=== PATIENT | male | born 2000 | race Caucasian/White ===

== ENCOUNTER 2019-04-30 09:42 | Emergency (ER) | payer OTHER, SELFPAY ==
[2019-04-30 09:52] VITALS: BP 136/75; PULSE 91; RESP 18; TEMP 36.8; O2SAT 99; BMI 19.2
[2019-04-30 09:59] LABS: UTC Strep Screen (Rapid) Negative (Negative)
--- NOTE | 2019-04-30 10:00 | HMH.EDUTC ---
[facility] [place] Disposition Clinical Impression: Strep sore throat Disposition: Home, Self-Care Condition on Discharge: Good Instructions: DI for Strep Throat, Strep Throat Additional Instructions: Start antibiotics today be sure to take it as ordered with the full length of time although you should start feeling better in 24-48 hours. Change toothbrush and toothpaste 24-48 hours after starting antibiotics Tylenol or Motrin as needed for fever or pain Encourage fluids, water, Gatorade, Powerade, try cold fluids, popsicles, ice cream will make it feel better You are contagious for 24 hours. Avoid kissing anyone, no eating or drinking after anyone. You are contagious. Follow-up the ER for new or worsening symptoms or no noticeable improvement over the next 24-48 hours. Follow-up with PCP this week. call for throat culture results in 48 hours Prescriptions: Azithromycin [Zithromax 250mg tab] 250 mg PO DIRECTED #6 tab Referrals: Devonte Strauss [Primary Care Provider] - Time of Disposition: 10:11 Medical Decision Making - Sonny Inquiry Pt receiving controlled substance: No Vital Signs: 04/30/19 09:52 Temperature 98.3 F Temperature Source Oral Pulse Rate [Left Radial] 91 H Respiratory Rate 18 Blood Pressure [Left Arm] 136/75 Blood Pressure Mean [Left Arm] 95 Blood Pressure Source [Left Arm] Automatic Cuff Blood Pressure Position [Left Arm] Sitting 02 Sat by Pulse Oximetry 99 Oxygen Delivery Method Room Air - Lab Data Lab Results 04/30/19 09:53: Strep Scn Rapid Clinic Negative Orders (Tests/Meds): ORDERS Category Date Time Status Strep Screen Confirmation Stat Micro 04/30/19 09:53 Received [facility] [place] HPI - General Chief complaint: Urgent Treatment Center Stated complaint: sore throat, runny nose, headache Time Seen by Provider: 04/30/19 10:00 Mode of Arrival: Ambulatory Source of Information: Patient Limitations: No Limitations Description of Symptoms (Recalled from Triage Doc. by RN): C/O SORE THROAT, COUGH, RUNNY NOSE, CONGESTION, YANEZ HEENT Symptoms (Recalled from RN notes): Yes (SORE THROAT, CONGESTION, YANEZ) Resp Symptoms (Recalled from RN notes): Yes (COUGH) Skin Symptoms (Recalled from RN notes): No MS Symptoms (Recalled from RN notes): No Functional Status (Recalled from RN notes): N/A - History of Present Illness Provider Complaint: 18 yr old male presnets for sore throat, headache,sinus congestion, horseness and fever since weds and getting worse. significant other states she had strep a few weeks ago. - Related Data Previous Rx's Medication Instructions Recorded Azithromycin [Zithromax 250mg 250 mg PO DIRECTED #6 tab 01/03/19 tab] Azithromycin [Zithromax 250mg 250 mg PO DIRECTED #6 tab 04/30/19 tab] Allergies Allergy/AdvReac Type Severity Reaction Status Date / Time codeine [CODEINE] Allergy Unknown Verified 11/30/18 09:57 Penicillins [PENICILLINS] Allergy Unknown Verified 11/30/18 09:57 latex Allergy Verified 01/03/19 09:55 - Worker's Comp Is this a Worker's Comp case?: No [facility] History - Hepatitis A Screen Drug use history?: No High risk sexual behaviors?: No History of sexually transmitted infection?: No Currently employed?: No Childcare worker?: No Do you have indoor plumbing?: Yes Do you have electricity?: Yes Attestation statement:: This patient has been screened for Hepatitis A risk factors. I have reviewed the patient's past medical history: Yes - Social History Smoking Status: Never smoker Alcohol Intake: never Occupational Status: other - Psychiatric History Expresses thoughts of harming self/others: None Suicide Plan Description: No Plan ROS Obtained: Yes Systems reviewed as appropriate & no additional complaints - Constitutional Constitutional: Reports system reviewed and no additional complaints, except as docu, Reports body ache, Reports fever(s), Reports headache(s) - Eyes Eyes: Reports system reviewed and no a
[2019-04-30 10:15] VITALS: BP 136/75; PULSE 91; RESP 18; TEMP 36.8; O2SAT 99
== END 2019-04-30 10:16 | disposition home or self-care (01) ==
PROVIDERS: Emergency Provider Nurse Practitioner Family; PCP Internal Medicine
DX: J02.0 Streptococcal pharyngitis (principal)
CPT/HCPCS: 87880; 99201

== ENCOUNTER 2020-03-06 16:01 | Emergency (ER) | payer OTHER, SELFPAY ==
[2020-03-06 16:08] VITALS: BP 125/75; PULSE 94; RESP 18; TEMP 37.1; O2SAT 97; BMI 19.2
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
[2020-03-06 17:43] VITALS: BP 125/75; PULSE 94; RESP 18; TEMP 37.1; O2SAT 97
== END 2020-03-06 17:44 | disposition home or self-care (01) ==
PROVIDERS: Emergency Provider Family Medicine; PCP Internal Medicine
DX: S70.311A Abrasion, right thigh, initial encounter (principal); W45.8XXA Other foreign body or object entering through skin, initial encounter; Y92.019 Unspecified place in single-family (private) house as the place of occurrence of the external cause; Z88.0 Allergy status to penicillin; Z88.5 Allergy status to narcotic agent; Z91.040 Latex allergy status
CPT/HCPCS: 99281

== ENCOUNTER 2020-05-05 13:42 | Emergency (ER) | payer OTHER, SELFPAY ==
[2020-05-05 14:13] VITALS: BP 123/80; PULSE 68; RESP 20; TEMP 36.7; O2SAT 100; BMI 19.2
--- NOTE | 2020-05-05 14:33 | PC.NURSE ---
PATIENT SENT TO ER PER RIANNA RECINOS APRN FOR FURTHER EVALUATION
[2020-05-05 14:38] VITALS: BP 123/85; PULSE 80; RESP 17; O2SAT 98; BMI 18.9
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
[2020-05-05 15:21] VITALS: BP 127/76; PULSE 72; RESP 14; TEMP 36.7; O2SAT 98
== END 2020-05-05 15:26 | disposition home or self-care (01) ==
LOC: UTC 14:06 → ER 14:34
PROVIDERS: Emergency Provider Family Medicine; PCP Internal Medicine
DX: S81.011A Laceration without foreign body, right knee, initial encounter (principal); Z88.0 Allergy status to penicillin; Z88.2 Allergy status to sulfonamides
CPT/HCPCS: 12002; 99282

== ENCOUNTER 2020-05-19 13:44 | Emergency (ER) | payer OTHER, SELFPAY ==
[2020-05-19 14:45] VITALS: BP 139/79; PULSE 98; RESP 20; TEMP 36.8; O2SAT 98; BMI 19.8
[2020-05-19 14:48] VITALS: BP 139/79; PULSE 98; RESP 20; TEMP 36.8; O2SAT 100
== END 2020-05-19 14:48 | disposition home or self-care (01) ==
PROVIDERS: Emergency Provider Nurse Practitioner; PCP Internal Medicine
DX: S81.011D Laceration without foreign body, right knee, subsequent encounter (principal)

== ENCOUNTER → 2020-05-21 15:55 | Outpatient (CLI) | payer OTHER, SELFPAY ==
--- NOTE | 2020-05-21 16:04 | CA_ITS ---
APPROVED REPORT Right Lower Extremity Venous Study for DVT. Asic Design Engineer: ABHILASH CoronaT Indications Lower Extremity Pain: Right PT HAS INJURY TO RT LEG SEVERAL WKS AGO REQUIRING AREA TO BE LANCED AND DRAINED, NOW HAS PAIN, TIGHTNESS AND REDNESS RT CALF, PT ALSO HAS A CAPILLARY DISORDER Risk Factors Trauma Vein Imaging CFV (R): compressive, spontaneous, phasic, augmentation FEM (R): compressive, spontaneous, phasic, augmentation POP (R): compressive, spontaneous, phasic, augmentation PTV (R): Compressible GSV (R): Compressible Peroneals (R):Compressible GAS (R): Non-Compressible Findings Study suggests no evidence of DVT of the right lower extremity. Study suggests SVT of the proximal and mid superficial veins of the right lower extremity. Conclusion Study suggests no evidence of DVT of the right lower extremity. Study suggests SVT of the proximal and mid superficial veins of the right lower extremity. Critical Notification Physician Notified Date: 05/21/2020 Time: 16:32 Physician Name: Dr Strauss Electronically signed by : Theodore Espinosa MD 05/21/2020 19:00:30
== END ==
LOC: RT 16:02
PROVIDERS: PCP Internal Medicine; Visit Provider Internal Medicine
DX: M79.89 Other specified soft tissue disorders (principal); R23.8 Other skin changes
CPT/HCPCS: 93971

== ENCOUNTER → 2020-06-12 15:08 | Outpatient (CLI) | payer OTHER, SELFPAY ==
--- NOTE | 2020-06-12 15:14 | CA_ITS ---
APPROVED REPORT Right Lower Extremity Venous Study for DVT. Rubber Curer: JONAH Indications Patient had injury to rt leg over a month ago that required area to be lanced and drained. He had a venous doppler of the right 05/21/20 that suggested SVT of the proxima and mid superficial veins of the right lower extremity. Today's venous is ordered as a followup. Patient has A capillary disorder. Medications Patient took Elliquis x 2 weeks after SVT diagnosis 05/21/20 Vein Imaging FEM (R): compressive, spontaneous, phasic, augmentation POP (R): compressive, spontaneous, phasic, augmentation PTV (R): Compressible Peroneals (R):Compressible GAS (R): Non-Compressible Findings Study suggests no evidence of DVT of the right lower extremity Study suggests SVT of the proximal and mid superficial veins of the right lower extremity with little to no change since venous done 05/21/20. Conclusion Study suggests no evidence of DVT of the right lower extremity Study suggests SVT of the proximal and mid superficial veins of the right lower extremity with little to no change since venous done 05/21/20. Electronically signed by : Theodore Espinosa MD 06/13/2020 16:07:54
== END ==
PROVIDERS: PCP Internal Medicine; Visit Provider Internal Medicine
DX: M79.605 Pain in left leg (principal); M79.89 Other specified soft tissue disorders
CPT/HCPCS: 93971

== ENCOUNTER 2020-10-13 15:15 | Emergency (ER) | payer OTHER, SELFPAY ==
[2020-10-13 15:22] VITALS: BP 128/64; PULSE 85; RESP 16; TEMP 36.9; O2SAT 99; BMI 18.6
[2020-10-13 15:25] VITALS: BP 118/69; PULSE 96; RESP 20; TEMP 37; O2SAT 98; BMI 18.6
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
[2020-10-13 16:20] VITALS: BP 118/69; PULSE 96; RESP 20; TEMP 37; O2SAT 98
== END 2020-10-13 16:25 | disposition home or self-care (01) ==
PROVIDERS: Emergency Provider Nurse Practitioner Family; PCP Internal Medicine
DX: S61.012A Laceration without foreign body of left thumb without damage to nail, initial encounter (principal); W31.89XA Contact with other specified machinery, initial encounter; Y92.018 Other place in single-family (private) house as the place of occurrence of the external cause; Z88.0 Allergy status to penicillin; Z88.5 Allergy status to narcotic agent
CPT/HCPCS: 12001; 99201

== ENCOUNTER 2022-10-24 13:59 | Emergency (ER) | payer BC, SELFPAY ==
[2022-10-24 14:30] VITALS: BP 130/74; PULSE 101; RESP 19; TEMP 37; O2SAT 98; BMI 18.6
--- NOTE | 2022-10-24 14:36 | EXP.UTC ---
Discharge Plan Disposition Patient Disposition: Home, Self-Care Condition: Good Prescriptions Prescriptions: New prednisone [prednisone] 20 mg tablet 20 mg PO BID 5 Days Qty: 10 0RF doxycycline monohydrate 100 mg tablet 100 mg PO BID 10 Days Qty: 20 0RF Referrals Follow up/Referrals: Devonte Strauss MD [Primary Care Provider] - See instructions Activity Restrictions/Add. Instructions Additional Instructions/Restrictions: Take all medicines as prescribed until gone Clinical Impressions Clinical Impression: Sinusitis Instructions Patient Instructions: DI for Sinusitis Discharge ED Provider: Chastity Hall [facility] [place] HPI General Stated complaint: Drainage, cough, sinus pressure Time Seen by Provider: 10/24/22 14:36 History of Present Illness Provider Complaint: Drainage, sinus pain, pressure, sore throat X 5 days. No fever. Onset (ago): day(s) (5) Location: face Relieving factors: none Exacerbating factors: none Associated symptoms: denies other symptoms Treatments prior to arrival: none Related Data Previous Rx's Medication Instructions Recorded doxycycline monohydrate 100 mg 100 mg PO BID 10 days #20 tabs 10/24/22 tablet prednisone 20 mg tablet 20 mg PO BID 5 days #10 tabs 10/24/22 Allergies Allergy/AdvReac Type Severity Reaction Status Date / Time codeine [CODEINE] Allergy Unknown Verified 11/30/18 09:57 Penicillins [PENICILLINS] Allergy Unknown Verified 11/30/18 09:57 latex Allergy Verified 01/03/19 09:55 [facility] Disclaimer: The information contained in this section may have been updated after the patient was seen, as this information can be updated by other users. Medical History (Updated 10/24/22 @ 14:46 by KESHIA Boyle) Migraine Social History Smoking Status: Never smoker alcohol intake: never current occupational status: other Travel in the last 8 weeks: None housing: house ROS Obtained: Yes All systems reviewed & no additional complaints except as documented ENT Ears, Nose, Mouth, and Throat: Reports nasal congestion, Reports sinus pain and Reports sinus pressure Respiratory Respiratory: Reports cough Physical Exam General General appearance: alert and in no apparent distress Head Head exam: atraumatic, normocephalic and normal inspection Eye Eye exam: Present normal appearance, PERRL and EOMI ENT ENT exam: Present normal exam, normal oropharynx, mucous membranes moist, TM's normal bilaterally and normal external ear exam Expanded ENT Exam Nose exam: Present sinus tenderness (right maxillary) Throat exam: Present other (PND) Neck Neck exam: Present normal inspection, full ROM and trachea midline; Absent meningismus or lymphadenopathy Chest Chest inspection: Present normal inspection and symmetric chest wall rise; Absent tenderness Respiratory Respiratory exam: Present normal lung sounds bilaterally; Absent respiratory distress Cardiovascular Cardiovascular exam: Present regular rate and normal rhythm; Absent JVD Abdominal Exam Abdominal exam: Present soft and normal bowel sounds; Absent distention, tenderness or guarding Extremities Exam Extremities exam: Present normal inspection, full ROM and normal capillary refill; Absent calf tenderness Back Exam Back exam: Present normal inspection; Absent tenderness Neurological Exam Neurological exam: Present alert and oriented X3 Psychiatric Psychiatric exam: Present normal affect and normal mood Skin Skin exam: Present warm, dry, intact and normal color Lymphatic Lymphatic Findings: no adenopathy Medical Decision Making Sonny Inquiry Pt receiving controlled substance: No
[2022-10-24 14:47] VITALS: BP 130/74; PULSE 101; RESP 19; TEMP 37; O2SAT 98
== END 2022-10-24 14:53 | disposition home or self-care (01) ==
PROVIDERS: Emergency Provider Physician Assistant; PCP Internal Medicine
DX: J32.9 Chronic sinusitis, unspecified (principal)
CPT/HCPCS: 99212; G0463

== ENCOUNTER 2025-07-25 17:51 | Emergency (ER) | payer BC, SELFPAY ==
[2025-07-25 17:52] VITALS: BP 124/79; PULSE 89; RESP 18; TEMP 36.9; O2SAT 100; BMI 21.4
--- NOTE | 2025-07-25 18:06 | ED_ITS ---
Discharge Plan Disposition Patient Disposition: Home, Self-Care Condition: Good Prescriptions Prescriptions: New dextromethorphan-guaifenesin 30-600 mg tablet extended release 12 hr 1 tab PO BID PRN (Reason: cough) Qty: 20 0RF No Action prednisone [prednisone] 20 mg tablet 20 mg PO BID 5 Days Qty: 10 0RF doxycycline monohydrate 100 mg tablet 100 mg PO BID 10 Days Qty: 20 0RF ondansetron 4 mg tablet,disintegrating 4 mg PO Q6H PRN (Reason: nausea and vomiting) Qty: 10 0RF Referrals Follow up/Referrals: Devonte Strauss MD [Primary Care Provider, Medical] - See instructions Activity Restrictions/Add. Instructions Additional Instructions/Restrictions: Take Tylenol or Motrin every 6 hours for the next couple days for your symptoms. I have sent you with a test of medication that you can take for your cough. Your symptoms likely could continue for another week. Return to the emergency department if you are short of breath, worsening chest pain. We will call you if anything comes back positive on your respiratory panel. Clinical Impressions Clinical Impression: Acute upper respiratory infection Print Language Print Language: Estonian Discharge ED Provider: Shanae Meredith General Adult HPI General Chief complaint: Upper Respiratory Infection Stated complaint: Soar Throat; Cough; Congestion; Runny Nose Time Seen by Provider: 07/25/25 17:56 History of Present Illness HPI narrative: Patient is an otherwise healthy 25-year-old male presents to the emergency department with upper respiratory symptoms for 1 week. Patient states that he has had nonproductive cough, congestion, some pain with coughing. Patient denies any other chest pain. Patient denies any shortness of breath. Patient denies any abdominal pain nausea vomiting or diarrhea. Patient states that he has taken TheraFlu and day NyQuil at home. Patient has not taken any bauh-[id number]-wtugmbk Motrin. Patient reports body aches but denies any chills or fevers at home. Patient reports a mild sore throat but denies any trouble swallowing. Related Data Previous Rx's ?Medication ?Instructions ?Recorded doxycycline monohydrate 100 mg 100 mg PO BID 10 days # 20 tabs 10/24/22 tablet prednisone 20 mg tablet 20 mg PO BID 5 days #10 tabs 10/24/22 ondansetron 4 mg disintegrating 4 mg PO Q6H PRN nausea and 04/10/24 tablet vomiting #10 tabs dextromethorphan-guaifenesin 30 1 tab PO BID PRN cough #20 tabs 07/25/25 mg-600 mg tablet extended hr Allergies Allergy/AdvReac Type Severity Reaction Status Date / Time codeine (CODEINE) Allergy Unknown Verified 11/30/18 09:57 Penicillins (PENICILLINS) Allergy Unknown Verified 11/30/18 09:57 latex Allergy Verified 01/03/19 09:55 [facility] Disclaimer: The information contained in this section may have been updated after the patient was seen, as this information can be updated by other users. Medical History (Updated 07/25/25 @ 18:50 by Shanae Meredith DO) Migraine Social History (Updated 10/24/22 @ 14:47 by Mckenna Bobo RN) Smoking Status: Never smoker alcohol intake: never current occupational status: other Travel in the last 8 weeks?: None housing: house Have you lived/traveled outside US in past 30 days?: No Contact w/someone who lives/traveled outside US past 30 days?: No Exposure to someone with infectious disease in past 14 days?: No Do you have a fever (greater than 100.4 F or 38 C)?: No Have you tested positive for COVID-19?: No Exposed to someone with COVID-19 in past 14 days?: No Do you have a sore throat?: No Do you have a cough?: No Do you have any weakness?: No Do you have any diarrhea?: No Are you experiencing any unusual bleeding?: No Do you have any muscle aches/pain?: No Do you have any abdominal pain?: No Are you experiencing loss of taste or smell?: No Other Medical History Have you received the Flu Vaccine for this season: No Have you received the Pneumonia Vaccine: No ROS Obtained: Yes All systems reviewed & no additional complaints except as documented and Yes Systems reviewed as appropriate & no additional complaints except as documented Physical Exam General General appearance: alert and in no apparent distress Head Head exam: atraumatic, normocephalic and normal inspection Eye Eye exam: Present normal appearance, PERRL and EOMI; Absent scleral icterus ENT ENT exam: Present normal exam, normal oropharynx, mucous membranes moist, mucous membranes dry, TM's normal bilaterally and normal external ear exam Neck Neck exam: Present normal inspection and full ROM Chest Chest inspection: Present normal inspection and symmetric chest wall rise; Absent tenderness Respiratory Respiratory exam: Present normal lung sounds bilaterally; Absent respiratory distress or wheezes Cardiovascular Cardiovascular exam: Present regular rate, normal rhythm and normal heart sounds Abdominal Exam Abdominal exam: Present soft and distention; Absent tenderness, guarding or rebound Extremities Exam Extremities exam: Present normal inspection and full ROM Back Exam Back exam: Present normal inspection and full ROM Neurological Exam Neurological exam: Present alert and oriented X3 Psychiatric Psychiatric exam: Present normal affect and normal mood Skin Skin exam: Present warm and dry Medical Decision Making Medical Records Medical records reviewed: Yes I reviewed the patient's medical records. Screening: Per USPSTF and CDC recommendations, given the prevalence of disease in our region, it is our hospital?s policy to screen for HIV and viral Hepatitis for all patients aged 18 and over and those with ongoing risk factors. Sonny Inquiry Pt receiving controlled substance: No Vital Signs: 07/25/25 17:52 07/25/25 18:56 07/25/25 18:58 Temperature 98.5 F 98.7 F Temperature Source Oral Oral Pulse Rate 90 Pulse Rate [Radial] 89 Respiratory Rate 18 18 Blood Pressure 108/68 L Blood Pressure [Left Arm] 124/79 Blood Pressure Mean [Left Arm] 94 Blood Pressure Source Automatic Cuff Blood Pressure Source [Left Arm] Automatic Cuff Blood Pressure Position Supine Blood Pressure Position [Left Arm] Sitting 02 Sat by Pulse Oximetry 100 100 Oxygen Delivery Method Room Air Room Air Room Air Lab Data Lab results reviewed: Yes I reviewed the patient's lab results. Lab Results 07/25/25 18:08: Chlamy pneumoniae PCR Not detected, Adenovirus (PCR) Not dete cted, B. pertussis DNA (PCR) Not detected, Coronavirus OC43 (PCR) Not detected, Coronavirus HKU1 (PCR) Not detected, Coronavirus 229E (PCR) Not detected, SARS-CoV-2 (PCR) Not detected, Coronavirus NL63 (PCR) Not detected, Human Metapneumovir PCR Not detected, Influenza A (H1) PCR Not detected, Influ A (H1N1/09) PCR Not detected, Influenza A (H3) PCR Not detected, Influenza Type A (PCR) Not detected, Influenza Type B (PCR) Not detected, M. pneumoniae (PCR) Not detected, Parainfluenza 1 (PCR) Not detected, Parainfluenza 2 (PCR) Not detected, Parainfluenza 3 (PCR) Not detected, Parainfluenza 4 (PCR) Not detected, RSV (PCR) Not detected, Entero/Rhino (PCR) Detected A Orders (Tests/Meds): ED MEDICATIONS Discontinued Medications Generic Name Dose Route Start Last Admin Trade Name Ariana PRN Reason Stop Dose Admin Acetaminophen 1,000 mg 07/25/25 18:15 07/25/25 18:34 Acetaminophen 500mg Tab PO 07/25/25 18:16 1,000 mg ONCE ONE Administration Ibuprofen 800 mg 07/25/25 18:15 07/25/25 18:34 Ibuprofen 800 Mg Tablet PO 07/25/25 18:16 800 mg ONCE ONE Administration ORDERS Category Date Time Status CXR 2 view (NOT portable) [XR chest 2V] Stat Exams 07/25/25 18:15 Completed Full Resp Panel w/COVID ([facility]) Routine Lab 07/25/25 18:08 Completed Medical Decision Narrative: Patient is an otherwise healthy 25-year-old male who presented to the emergency department with upper respiratory symptoms for 1 week. On arrival, patient was hemodynamically stable Differential includes but not limited to: Upper respiratory infection, sinusitis, pneumonia bacterial versus viral, costochondritis, musculoskeletal spasm, amongst others. Respiratory swab was sent, chest x-ray was obtained and patient was given Tylenol emergency department. Patient's chest x-ray was reviewed and interpreted by myself and showed no acute pneumothorax, pleural effusion or other acute cardiopulmonary process. Respiratory swab was sent but was not great for the emergency department, pat ient was notified that he would be called if anything was positive for anything requiring antibiotics. Patient was sent with an antitussive medication recommended to continue taking Tylenol and Motrin at home. Patient was given expected course of his likely viral syndrome. Patient was given return precautions and patient was otherwise discharged home in stable condition. Critical Care Critical Care Time Critical Care Time: No
--- OUTSIDE RECORDS SUMMARY | 2025-07-25 18:12 | XMS_ITS | Encounter Summary ---
Author Organization [facility] Address [address] [place] [address] Care Team Providers Care Blood Coordinator Name Role Phone Chente Redding M.D. Primary Care Provider [phone] Reason for Visit * Reason Comments Medication Refill Encounter Details Date Type Department Care Team (Late st Contact Info) Description 02/09/2016 Refill [facility] Cancer and Blood Diseases [place] [address] [place] [phone] Shara Davis, DOWEL INSERTING MACHINE OPERATOR-DISTRICT ENGINEER Hematology-Oncology [address] [place] [address] [address] [place] [address] Medication Refill Social History Tobacco Use Types Packs/Day Years Used Date Smoking Tobacco: Never Smokeless Tobacco: Never Alcohol Use Standard Drinks/Week Comments No 0 (1 standard drink = 0.6 oz pur e alcohol) Sex and Gender Information Value Date Recorded Sex Assigned at Not on file Legal Sex Male 7:19 AM EST Gender Identity Not on file Sexual Orientation Not on file documented as of this encounter Plan of Treatment Not on file documented as of this encounter Visit Diagnoses Not on filedocumented in this encounter Care Teams Blood Coordinator Relationship Specialty Start Date End Date Chente Redding M.D. [address] [place] [address] [address] [place] [address] PCP - General External Family Practice 02/20/14 documented as of this encounter
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
--- OUTSIDE RECORDS SUMMARY | 2025-07-25 18:12 | XMS_ITS | Encounter Summary ---
Author Organization [facility] Address [address] [place] [address] Care Team Providers Care Battery Charger Name Role Phone Chente Reddign M.D. Primary Care Provider [phone] Encounter Details Date Type Department Care Team (Late st Contact Info) Description 01/24/2014 Telephone [facility] [address] [place] [phone] Dianna Mckee Social History Tobacco Use Types Packs/Day Years Used Date Smoking Tobacco: Never Assessed Sex and Gender Information Value Date Recorded Sex Assigned at Not on file Legal Sex Male 7:19 AM EST Gender Identity Not on file Sexual Orientation Not on file documented as of this encounter Miscellaneous Notes * Telephone Encounter - Dianna Mckee - 01/24/2014 3:26 PM EDT [place] [facility], [facility] ELIGIBLE PER [employer] FOR JANUARY. EFF 11/09/13. NO AUTH FOR OV,OUTPT, NO REFERRAL, INPT REQUIRES AUTHORIZATION. documented in this encounter Plan of Treatment Not on file documented as of this encounter Visit Diagnoses Not on filedocumented in this encounter Care Teams Battery Charger Relationship Specialty Start Date End Date Chente Redding M.D. [facility] [address] [place] [id number] PCP - General External Family Practice 02/20/14 documented as of this encounter
--- NOTE | 2025-07-25 18:15 | XR_ITS ---
PROCEDURE INFORMATION: Exam: XR Chest Exam date and time: 07/25/2025 6:10 PM Age: 25 years old Clinical indication: Pain; Chest pressure; Additional info: Chest pain, uri TECHNIQUE: Imaging protocol: Radiologic exam of the chest. Views: 2 views. COMPARISON: CT ABDOMEN PELVIS W CON 04/10/2024 7:58 PM FINDINGS: Lungs: The lungs appear clear. No focal areas of consolidation. Pleural spaces: No pleural effusions. Negative for pneumothorax. Heart/Mediastinum: Cardiac silhouette and pulmonary vasculature are within range of normal. Bones/joints: There is no evidence of acute fracture. There is a minor convex right upper lumbar scoliosis. IMPRESSION: 1. Negative for an acute cardiopulmonary abnormality.
[2025-07-25] MEDS: ACETAMINOPHEN 500MG TAB 1000 MG PO (18:34)
[2025-07-25] MEDS: IBUPROFEN 800 MG TABLET PO (18:34)
[2025-07-25 18:35] LABS: Adenovirus,PCR Not Detected (NotDetected); Chlamydophila Pneumoniae, PCR Not Detected (NotDetected); Coronavirus 19, PCR Not Detected (NotDetected); Coronovirus HKU1,PCR Not Detected (NotDetected); Influenza A, PCR Not Detected (NotDetected); Influenza AH1, 2009 Not Detected (NotDetected); Influenza AH1, PCR Not Detected (NotDetected); Influenza AH3,PCR Not Detected (NotDetected); Influenza B, PCR Not Detected (NotDetected); Mycoplasma Pneumoniae, PCR Not Detected (NotDetected); Parainfluenza 1, PCR Not Detected (NotDetected); Parainfluenza 2, PCR Not Detected (NotDetected); Parainfluenza 3, PCR Not Detected (NotDetected); Parainfluenza 4, PCR Not Detected (NotDetected)
[2025-07-25 18:56] VITALS: BP 108/68; PULSE 90; RESP 18; TEMP 37.1; O2SAT 100
[2025-07-25 18:58] VITALS: O2SAT 100
== END 2025-07-25 18:58 | disposition home or self-care (01) ==
PROVIDERS: Emergency Provider Student in an Organized Health Care Education/Training Program; PCP Internal Medicine
DX: R07.0 Pain in throat (principal); R09.81 Nasal congestion; J06.9 Acute upper respiratory infection, unspecified; B34.1 Enterovirus infection, unspecified
CPT/HCPCS: 0223U; 71046; 99283

== ENCOUNTER 2025-09-28 06:26 | Emergency (ER) | payer BC, SELFPAY ==
[2025-09-28 06:32] VITALS: BP 133/92; PULSE 88; RESP 20; TEMP 36.7; O2SAT 98; BMI 18.0
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
--- OUTSIDE RECORDS SUMMARY | 2025-09-28 06:32 | XMS_ITS | Encounter Summary ---
Author Organization [facility] Address [address] [place] [address] Care Team Providers Care Glue Line Operator Name Role Phone Chente Redding MD Primary Care Provider [phone] Reason for Visit * Reason Comments Medication Refill Encounter Details Date Type Department Care Team (Late st Contact Info) Description 02/09/2016 Refill [facility] Cancer and Blood Diseases [place] [address] [place] [phone] Shara Davis, PILLOWCASE MAKER[facility] Hematology-Oncology [address] [place] [address] [address] [place], [place] [id number] Medication Refill Social History Tobacco Use Types [...] on filedocumented in this encounter Care Teams Glue Line Operator Relationship Specialty Start Date End Date Chente Redding MD [address] [place] [address] [address] [place] [address] PCP - General External Family Practice 02/20/14 documented as of this encounter
--- OUTSIDE RECORDS SUMMARY | 2025-09-28 06:32 | XMS_ITS | Encounter Summary ---
Author Organization [facility] Address [address] [place] [address] Care Team Providers Care Steward/Stewardess Wine Name Role Phone Chente Redding MD Primary Care Provider [phone] Encounter Details Date Type Department Care Team (Late st Contact Info) Description 01/24/2014 Telephone [facility] [address] [place] [phone] Dianna Mckee Social History Tobacco Use [...] Mckee - 01/24/2014 3:26 PM EDT [facility] ELIGIBLE PER [employer] FOR JANUARY. EFF 11/09/13. NO AUTH FOR OV,OUTPT, NO REFERRAL, INPT REQUIRES AUTHORIZATION. documented in this encounter Plan of Treatment Not on file documented as of this encounter Visit Diagnoses Not on filedocumented in this encounter Care Teams Steward/Stewardess Wine Relationship Specialty Start Date End Date Chente Redding MD [address] [place] [address] [address] [place] [address] PCP - General External Family Practice 02/20/14 documented as of this encounter
--- OUTSIDE RECORDS SUMMARY | 2025-09-28 06:32 | XMS_ITS | Clinical Summary ---
Author Organization [facility] Address [address] [place] [address] Care Team Providers Care Manufacturing Industrial Engineer Name Role Phone Chente Redding MD Primary Care Provider [phone] Source Comments [facility] is fully rolled out with thefollowing exceptions:[facility] Allergies Active Allergy Reactions Criticality Noted Date [...] VACCINE (#1) 07/10/2025, 09/25/2015, 08/31/2013 COVID-19 Vaccine (1 - 2024-2 6 season) 2025 HIB IMMUNIZATION Aged Out No [...] patient's age to complete this topic Insurance [facility] Care Teams Manufacturing Industrial Engineer Relationship Specialty Start Date End Date Chente Redding MD [address] [place] [address] [address] [place] [address] PCP - General External Family Practice 02/20/14
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
[2025-09-28 06:57] LABS: Hematocrit 51.5 % (42.0-52.0); Hemoglobin 16.8 g/dL (14.1-18.0); Immature Granulocytes % 0.3 %; Mean Corpuscular HGB Conc 32.6 g/dL (31.8-35.4); Mean Corpuscular Hemoglobin 28.9 pg (27.0-31.2); Mean Corpuscular Volume 88.5 fl (80-94); Nucleated Red Blood Cells % 0 %; Platelet Count 222 K/mm3 (142-424); Red Blood Count 5.82 M/mm3 (4.60-6.20); Red Cell Distribution Width-SD 40.9 fL; White Blood Count 10.4 K/mm3 (4.8-10.8)
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
[2025-09-28 07:00] VITALS: BP 128/80; PULSE 80; O2SAT 99
[2025-09-28 07:03] LABS: Alanine Aminotransferase 20 U/L (12-78); Albumin Level 5.0 g/dl (3.5-5.0); Albumin/Globulin Ratio 2.1 (1.1-1.8); Alkaline Phosphatase 59 U/L (38-126); Anion Gap 12.9 mEq/L (5-15); Aspartate Amino Transferase 24 U/L (17-59); Bilirubin,Total 0.7 mg/dl (0.2-1.3); Blood Urea Nitrogen 14 mg/dl (9-20); Calcium 9.4 mg/dl (8.4-10.2); Carbon Dioxide 28 mmol/L (22.0-30.0); Chloride 103 mmol/L (98-107); Creatinine Clearance Estimated 103 mL/min (50-200); Creatinine,Serum 0.80 mg/dl (0.66-1.25); Estimated Glomerular Filt Rate 117 ml/min (>60); GFR (African American) 141 ML/MIN (>60); Globulin 2.4 g/dL (1.3-3.2); Glucose 114 mg/dl (74-100); Potassium 3.9 mmoL/L (3.5-5.1); Sodium 140 mmol/L (136-145); Total Protein,Serum 7.4 g/dl (6.3-8.2)
[2025-09-28 07:05] LABS: Activated Partial Thrombo Time 23.9 seconds (22.8-30.6); INR 0.99 (0.9-1.1); Prothrombin Time 11.0 seconds (10.1-12.5)
[2025-09-28 07:30] VITALS: BP 121/73; PULSE 76; O2SAT 98
[2025-09-28 07:34] LABS: Microscopic, Urine URINE MICROSCOPIC (MICROSCOPIC)
[2025-09-28 07:40] LABS: Bilirubin,Urine Negative (Negative); Color,Urine YELLOW (Yellow); Glucose,Urine (UA) Negative (Negative); Ketones,Urine Negative (Negative); Leukocyte Esterase,Urine Negative (Negative); PH,Urine 6.0 (5.0-8.5); Protein,Urine Negative (Negative); Specific Gravity, Urine 1.010 (1.005-1.030); Urobilinogen,Urine 0.2 EU/dl (0.2)
[2025-09-28 08:00] VITALS: BP 111/72; PULSE 80; O2SAT 98
[2025-09-28 08:14] VITALS: BP 111/75; PULSE 75; RESP 20; TEMP 36.6; O2SAT 98
== END 2025-09-28 08:16 | disposition home or self-care (01) ==
PROVIDERS: Emergency Provider Emergency Medicine; PCP Internal Medicine
DX: M54.2 Cervicalgia (principal); R51.9 Headache, unspecified; M79.662 Pain in left lower leg; V49.40XA Driver injured in collision with unspecified motor vehicles in traffic accident, initial encounter
CPT/HCPCS: 70450; 71045; 72125; 72170; 80053; 81001; 85025; 85610; 85730; 99285